=== PATIENT | female | born 1980 | race Caucasian/White ===

== ENCOUNTER 2018-04-30 09:58 | Outpatient (CLI) | payer OTHER, SELFPAY ==
[2018-04-30 10:36] LABS: HCT 42.4 % (36.0-46.0); HGB 13.8 g/dL (12.0-15.5); Mean Corp. HGB Concentration 32.5 g/dL (32.0-36.0); Mean Corpuscular Hemoglobin 31.9 pg (27.0-33.0); Mean Corpuscular Volume 98.1 fL (80-95); Mean Platelet Volume 10.3 fL (8.0-11.0); Platelet Count 245 x1000/uL (130-400); RBC 4.32 m/cumm (4.00-5.20); RBC Distribution Width 12.3 % (11.7-14.6); White Blood Cell Count 5.69 k/cumm (4.4-10.8)
[2018-04-30 11:22] LABS: ALT 24 U/L (12-78); AST 15 U/L (15-37); Albumin 3.6 g/dL (3.4-5.0); Alkaline Phosphatase 61 U/L (46-116); Anion Gap 6.3 mmol/L (3-11); BUN 10 mg/dL (7-18); Bilirubin, Total 0.6 mg/dL (0.2-1.0); CO2 26.7 mmol/L (21.0-32.0); CREATININE 0.89 mg/dL (0.55-1.02); Calcium 8.7 mg/dL (8.5-10.1); Chloride 105 mmol/L (98-107); Glucose 84 mg/dL (70-100); Potassium 4.9 mmol/L (3.5-5.1); Sodium 138 mmol/L (136-145); TSH (W/Ref FT4) 0.36 uIU/mL (0.358-3.74); Total Protein 6.6 g/dL (6.4-8.2)
[2018-04-30 11:41] LABS: Vitamin D 25 Total 30.9 ng/ml (30-100)
[2018-04-30 12:08] LABS: ESR 18 MM/HR (0-20)
[2018-05-01 09:32] LABS: Rheumatoid Factor <8 IU/mL (<12.5)
[2018-05-02 14:05] LABS: ANA Interpretation Negative (NEGAT)
== END 2018-04-30 10:18 ==
PROVIDERS: PCP Nurse Practitioner; Visit Provider Nurse Practitioner
DX: E55.9 Vitamin D deficiency, unspecified (principal); M25.50 Pain in unspecified joint
CPT/HCPCS: 36415; 80053; 82306; 85027; 85652; 84443; 86038; 86431

== ENCOUNTER 2018-09-03 16:41 | Outpatient (REF) | payer MEDICAID, SELFPAY ==
--- NOTE | 2018-09-03 15:15 | PAPFT_PTH ---
PATIENT: Jeana Beckwith LOC: [facility] U#:[id number] AGE/SX: 38/F ROOM: RE09/03/[address]: Skylar Rey APRN : 1980 BED: DIS: 09/03/2018 SPEC #: [id number] RECD: 09/03/18 18:10 STATUS: CHANTELLE REDon #: [id number] MAMI: 09/03/18 15:[address]: Skylar Rey DEPT: [facility] Cytology RECD BY: Kiara Ortiz Tissues: 1 - CX/ENDOCX FOR PAP SMEARS Procedures: PAP THIN PREP/UVM Screening HPV DNA PROBE Comments: [id number]
== END 2018-09-03 17:01 ==
LOC: LBN 16:41
PROVIDERS: PCP Nurse Practitioner; Visit Provider Nurse Practitioner
DX: Z12.4 Encounter for screening for malignant neoplasm of cervix (principal); Z11.51 Encounter for screening for human papillomavirus (HPV)
CPT/HCPCS: 88142; 87624

== ENCOUNTER 2020-07-08 00:31 | Outpatient (CLI) | payer BC, SELFPAY ==
--- NOTE | 2020-07-08 07:15 | DI.MAMMO_ITS ---
EXAM: MG MAMMO SCREENING CLINICAL HISTORY: screening,Z12.39,FAMILY H/O BREAST CA,Z80.3. TECHNIQUE: Bilateral full field digital CC and MLO mammographic images were obtained with 3D tomosyn thesis and utilizing computer aided detection (CAD). COMPARISON: None available. FINDINGS: The fibroglandular tissue is moderately dense, this decreasing sensitivity mammogram for finding hidd en underlying lesions. No obvious radiographic findings in the right breast. In the left breast there is a subtle suggestio n of a nodular density evident on the CC view located 6 centimetres in from the nipple and measuring 6 x 5 millimeters. Spot compression view recommended. There are no malignant-appearing microcalcifi cation groups in either breast. There is no significant architectural distortion or skin thickening- traction. IMPRESSION: Moderately dense fibroglandular tissue. Suggestion of left breast nodule. Spot compression view and possible ultrasound recommended. BI-RADS Category 0 - Assessment Incomplete: Need additional imaging evaluation Breast Density - Category C - Heterogeneously dense Breast density Category C or D implies that the patient has dense breast tissue. Dense breast tissue can make it harder to find cancer on a mammogram. Dense breast tissue is also associated with an incr eased risk of breast cancer. This information about the result of the mammogram report was provided to the patient to raise their awareness. Use this report when you speak with the patient about their risks for breast cancer, which includes their family history. At that time, you may recommend additional screening tests (Ultrasoun d or MRI) as these tests may add significant information. A negative radiographic report should not delay biopsy if a dominant or clinically suspicious mass is present. Up to ten percent of cancers are not identified on mammography. A negative report may reinforce clinical impression. Adenosis and dense breasts may obscure an underlying neoplasm. False positive reports average 6 to 10%. Patient will receive a letter notifying them of these results.
--- NOTE | 2020-07-08 11:58 | DI.RAD_ITS ---
EXAM: XR SHOULDER RT COMPLETE 2+V CLINICAL HISTORY: Shoulder pain, right arm numbness at times,M25.511. TECHNIQUE: 2D digital imaging was performed. COMPARISON: No exams were available for comparison FINDINGS: BONES: No acute fracture is present. No bony destructive lesion is seen. JOINTS: No dislocation present. The acromioclavicular and glenohumeral joints are unremarkable. SOFT TISSUE: There is a large calcification adjacent to the greater tuberosity consistent with calcif ic tendinitis. IMPRESSION: Calcific tendinitis of the right shoulder. DATA REPOSITORY: RADIATION DOSE DELIVERED:
--- NOTE | 2020-07-08 11:59 | DI.RAD_ITS ---
EXAM: XR HIP LT COMPLETE AP PELVIS CLINICAL HISTORY: L hip pain, sometimes left leg tingling,M25.552. TECHNIQUE: 2D digital imaging was performed. COMPARISON: No exams were available for comparison FINDINGS: BONES: No acute fracture is present. No bony destructive lesion is seen. Small dystrophic calcificati ons are seen adjacent to the acetabuli bilaterally. JOINTS: The hip joints are well maintained bilaterally. The sacroiliac joints and symphysis pubis ar e unremarkable. Moderate degenerative changes are seen at the L4-5 and L5-S1 disc spaces. SOFT TISSUE: Normal. IMPRESSION: 1. Unremarkable radiographs of the left hip. 2. Moderate degenerative changes seen at L4-5 and L5-S1. DATA REPOSITORY: RADIATION DOSE DELIVERED:
== END 2020-07-08 00:51 ==
PROVIDERS: PCP Nurse Practitioner; Visit Provider Nurse Practitioner
DX: M25.552 Pain in left hip (principal); M47.817 Spondylosis without myelopathy or radiculopathy, lumbosacral region; M47.816 Spondylosis without myelopathy or radiculopathy, lumbar region; M75.31 Calcific tendinitis of right shoulder; Z12.31 Encounter for screening mammogram for malignant neoplasm of breast; Z80.3 Family history of malignant neoplasm of breast; R92.8 Other abnormal and inconclusive findings on diagnostic imaging of breast
CPT/HCPCS: 77063; 77067; 73030; 73502

== ENCOUNTER 2020-07-28 01:01 | Outpatient (CLI) | payer BC, SELFPAY ==
--- NOTE | 2020-07-28 | DI.US_ITS ---
EXAM: MG MAMMO SCREEN CALL BACK UNI CLINICAL HISTORY: F/U MAMMO, NODULAR ASYMMETRY CENTRAL LT BREAST. TECHNIQUE: Craniocaudal and mediolateral oblique Full Field Digital Mammography views of the breast with Computer Aided Diagnosis followed by Tomosynthesis and breast ultrasound. COMPARISON: Priors available for comparison. FINDINGS: Mammography/Tomosynthesis: Masses/Architectural Distortion: None seen. Microcalcifictions: No suspicious pleomorphic-type are seen. Skin Thickening/Nipple Retraction: None. Left breast US: Echotexture: Normal appearance of the glandular tissue. Shadowing: No suspicious foci. Cyst: None. Solid lesions: There is a well-circumscribed hypoechoic nodule at the 6 o'clock position of the left breast 1 cm from the nipple measuring 0.5 x 0.4 x 0.3 cm. No internal blood flow, posterior acoustic shadowing or enhancement is noted. No cystic or solid masses are seen sonographically in the area t o correspond to the mammographic finding. Ductal dilation: None. IMPRESSION: 1. No evidence of malignancy is noted. 2. A six-month follow-up left mammogram and left breast ultrasound are requested for re-evaluation. 3. The findings were discussed with the patient on the date of the examination. BI-RADS Category 2 - Benign Findings Breast Density - Category C - Heterogeneously dense The mammogram demonstrates the patient's breast tissue is dense. Dense breast tissue is very common a nd is not abnormal but dense breast tissue can make it harder to find cancer on a mammogram. Also, de nse breast tissue may increase their breast cancer risk. This information about the result of the [facility] mogram report was provided to the patient to raise their awareness. Use this report when you speak wi th the patient about their risks for breast cancer, which includes their family history. At that time , you may recommend for more screening tests (Ultrasound or MRI) as they might be useful based on the ir risk. A negative radiographic report should not delay biopsy if a dominant or clinically suspicious mass is present. Up to ten percent of cancers are not identified on mammography. A negative report may reinforce clinical impression. Adenosis and dense breasts may obscure an underlying neoplasm. False positive reports average 6 to 10%. Patient will receive a letter notifying them of these results.
== END 2020-07-28 01:21 ==
PROVIDERS: PCP Nurse Practitioner; Visit Provider Nurse Practitioner
DX: Z12.31 Encounter for screening mammogram for malignant neoplasm of breast (principal); R92.8 Other abnormal and inconclusive findings on diagnostic imaging of breast; N60.82 Other benign mammary dysplasias of left breast
CPT/HCPCS: 76642; 77063; 77067

== ENCOUNTER 2020-09-02 02:03 | Outpatient (CLI) | payer BC, SELFPAY ==
--- NOTE | 2020-09-02 10:35 | DI.MRI_ITS ---
EXAM: MR UPPER JOINT RT WO CLINICAL HISTORY: CALCIFIC TENDINITIS,SHOULDER PAIN, M65.20. TECHNIQUE: Multiplanar multisequence MRI was performed. CONTRAST MATERIAL: IV Contrast: mL of Dotarem contrast administered. COMPARISON: Plain films dated 08 July 2020 shown large calcification in the distal supraspinatus tendon. FINDINGS: A 15 millimeter area of low signal is seen directly adjacent or within the distal supraspinatus tendo n, consistent with calcific tendinosis. There is a small amount of fluid in the subacromial subdelto id bursa. There is no evidence of supraspinatus tendon tear. The infraspinatus, subscapularis, cristhian s minor and biceps tendon appear intact. There is no cystic significant AC joint spurring. There is no muscle atrophy. There is a small amount of fluid in the subcoracoid bursa. No labral defect is seen. IMPRESSION: Calcific tendinosis of the supraspinatus. No evidence of tendon tear. DATA REPOSITORY:
== END 2020-09-02 02:04 ==
LOC: DI 02:04
PROVIDERS: PCP Nurse Practitioner; Visit Provider Student in an Organized Health Care Education/Training Program
DX: M75.31 Calcific tendinitis of right shoulder (principal)
CPT/HCPCS: 73221

== ENCOUNTER 2020-10-28 02:59 | Outpatient (CLI) | payer BC, SELFPAY ==
[2020-10-28 10:13] LABS: Source Nasal/Nares
[2020-10-28 15:23] LABS: COVID-19 PCR Negative (Negative)
== END 2020-10-28 03:00 | disposition home or self-care (01) ==
LOC: LBO 02:59
PROVIDERS: PCP Nurse Practitioner; Visit Provider Student in an Organized Health Care Education/Training Program
DX: Z20.822 Contact with and (suspected) exposure to COVID-19 (principal); Z01.818 Encounter for other preprocedural examination
CPT/HCPCS: 87635

== ENCOUNTER 2020-10-30 08:24 | Day surgery (SDC) | payer BC, SELFPAY ==
[2020-10-30] VITALS (10 sets, daily range): BP systolic 85–123; BP diastolic 34–85; PULSE 62–81; RESP 16–21; TEMP 36.3–36.5; O2SAT 95–100
[2020-10-30] MEDS: Lactated Ringers 1,000 ML 100 ML IV (09:06)
[2020-10-30] MEDS: ceFAZolin 2 GM/50 ML BAG IVPB (10:30)
[2020-10-30] MEDS: EPINEPHrine 30 MG/30 ML VIAL (12:18)
--- NOTE | 2020-10-30 13:04 | W.PM.DSUDISC ---
Discharge Plan Disposition Patient Disposition: HOME Condition: Stable Discharge Details Reason For Visit: Right shoulder surgery Attending Provider: Oral Larson Primary Care Provider: Skylar Rey Home Meds and New Rx's Prescriptions: New naproxen 250 mg tablet 250 - 500 mg PO BID PRN (Reason: Moderate pain or swelling) Qty: 60 RF: 0 oxycodone 5 mg tablet 5 - 10 mg PO Q4H PRN (Reason: moderate to severe pain) Qty: 16 RF: 0 Continued cholecalciferol (vitamin D3) 3,000 UNIT tablet 3,000 unit PO DAILY Qty: 90 RF: 3 Discontinued gabapentin 300 mg capsule 300 mg PO QHS Qty: 60 RF: 5 Discharge Instructions Additional Instructions: Surgery: Shoulder arthroscopy with debridement supraspinatus calcific deposit, subacromial decompression, and rotator cuff repair Activity: For 4 weeks you should keep your arm at your side in a neutral position at all times except for physical therapy. Do not try to lift or raise your arm using your own muscles. You should use the sling whenever you are out of the house. You may have to adjust the abduction pillow or remove it for comfort. At home it is best to remove the sling and rest the arm on a pillow at your side or support the operative side with your other hand. You may allow the arm to dangle at your side. A physical therapy prescription will be sent electronically to begin in 2-3 weeks. Prescriptions: Naproxen 250 mg take 1-2 every 12 hours with a meal as needed for moderate pain Oxycodone 5 mg take 1-2 every 4-6 hours as needed for severe pain You may use [id number] Tylenol (acetaminophen) as needed for mild pain. These pain medications may be taken all at once or in different combinations as needed. Also, recommend Colace (docusate) as a stool softener as surgery and pain medicine cause constipation. Dressings: Remove shoulder bandage after 3 days. Leave the sticky Steri-Strips in place until they fall off or remove them after you shower. Cover the incisions with Band-Aids or leave them open to air. You may shower after 5 days. Follow-up: 10-[address] Larson You may take off the leg compression stockings this evening at home. You may also leave them on a few days longer if you have a history of leg swelling or edema. Let us know right away if you develop any redness, drainage, fevers, chest pain, or trouble breathing. Do not drink alcohol or drive for at least 24 hours after anesthesia. Please call the office during business hours with any questions or concerns. Referrals: Oral Larson MD [ [facility] STAFF PHYSICIAN] - Discharge Orders Discharge Orders: Discharge Order (Routine); Ordered 10/30/20 Ordered By: Oral Larson DS: Diagnosis Discharge Diagnosis (1) Calcific tendinitis: Status: Acute
--- NOTE | 2020-10-30 15:50 | ROE_ITS ---
Date of service: 10/30/20 Time of Service: 15:29 Operative Note Operative Note DATE OF PROCEDURE: 10/30/20 PRE-OP DIAGNOSIS: Right shoulder: 1. Calcific tendinitis 2. Bursitis POST-OP DIAGNOSIS: other Right shoulder: 1. Calcific tendinitis 2. Bursitis 3. Rotator cuff tear PROCEDURE: Right shoulder: 1. Rotator cuff repair, CPT# 17841. This involved repair of the supraspinatus calcium deposit defect using sutures and a suture anchor anchor to reapproximate the edges of the rotator cuff and secured back to the greater tuberosity. 2. Extensive debridement, CPT# 93454. This involved using arthroscopic hand instruments, power instruments, and radiofrequency instruments to expose, completely debride, and thoroughly resect large calcific deposit in the supraspi natus tendon and subacromial space. Minor anterior and superior labral fraying was also lightly debrided within the glenohumeral joint. 3. Subacromial decompression, CPT# 23700. This involved using arthroscopic power instruments and a radiofrequency wand to complete a bursectomy of significant pathologic bursa especially laterally, expose the undersurface of the acromium, and partially release the CA ligament.. The lpn medical assistant was medically required in order to help assist in techniques above, which require positioning the arm, holding the arthroscope, and manipulating multiple instruments and sutures at the same time. This cannot be done without the help of an experienced lpn medical assistant. SURGEON: Oral Larson PRECISION PRINTING WORKER: Marce Kitchen ANESTHESIA TYPE: General LMA/ETT and Primary Nerve Block Refer to Anesthesia Record ESTIMATED BLOOD LOSS: 10 PATHOLOGY: none sent COMPLICATIONS: None Patient was transported to: PACU Patient's condition: stable Implants: Arthrex: 4.75mm SwiveLocks x 1 Indications: The patient was diagnosed with the above conditions and appropriately indicated for surgical intervention. Please see complete medical record for details. Findings: Exam under anesthesia: Full, symmetrical range of motion. No instability. Glenohumeral joint: Minimal synovitis. Intact articular cartilage. Mild anterior and superior labral fraying. Likely normal superior labral recess but not pathologic SLAP tear. Mild long head of biceps tendon injection. Intact subscapularis. Intact articular sided supraspinatus infraspinatus. Subacromial space: Significant bursitis especially laterally with some hemorrhagic bursitis. Minimal acromial bone spurring. Large approximately 2 x 2 centimeter calcific deposit in the central and lateral supraspinatus involving largely the bursal most fibers and somewhat deeper more medially and posteriorly in limited aspects up to 50% thickness and limited spots. Remainder of supraspinatus intact. Intact infraspinatus. Procedure Description: In the operating room, general anesthesia was induced. Bilateral shoulders were examined. The patient was positioned in the beachchair position. All bony prominences were well-padded. Preoperative antibiotics were administered. The shoulder was prepped and draped in the usual sterile fashion. The correct patient, procedure, and side of the procedure were all verified prior to incision. Starting through the posterior portal a standard complete diagnostic arthroscopy was performed of the glenohumeral joint including inspection of the long head of the biceps, anterior and superior labrum, subscapularis tendon, supraspinatus and infraspinatus tendons, and axillary recess. The glenoid and humeral head cartilage as well as the posterior labrum were inspected from an anterior v iewing portal. Significant findings and interventions noted above. Starting through the posterior portal, the arthroscope was directed into the subacromial space. A lateral 50 yard line lateral portal was created and Michelle cannula inserted. A combination of power instruments and a radiofrequency ablator were used to debride bursitis anteriorly, posteriorly, and laterally as well as expose the underside of the acromion, which was smoothing did not require acromioplasty. The coracoacromial ligament was partially released. The bursectomy was completed viewing laterally and working from posteriorly and the rotator cuff was thoroughly inspected with findings noted above. Particular attention paid to the lateral supraspinatus about the location of the calcific deposition. Correct site for approaching the calcific deposition was confirmed using a spinal needle attempted to be most lateral and central to the lesion. A liberator/elevator was then used to separate the thin bursal most fibers of the rotator cuff in this site in line with their fibers and expose abundant calcific debris below. The Michelle inner clear cannula was then used to press against the exposed deposit site and manually squeeze out significant calcium debris. Mechanical shaver was brought in to remove calcium from about the site. Alternating between various hand instruments, radiofrequency ablator, and m echanical shaver this process was carefully continued until all calcific deposition was removed from the supraspinatus tendon site, frayed tendon edges were debrided to a healthy and stable margin. Minimal healthy tendon was violated and care was taken to work in line with fibers from as far laterally possible to medial. The margin of the subacromial space were carefully inspected and any free calcific debris removed as well. Once appropriate debridement had been completed, the rotator cuff defect was inspected. Tissue graspers confirmed limited aspect maybe 50% thickness medially anteriorly and posteriorly at this bruit site with less thick defect centrally medially and laterally. Reduction was confirmed to be best with closure of the anterior to posterior gap and bringing a medial cuff of tissue from medial to lateral. The Michelle cannula and arm were positioned to accommodate planned rotator cuff repair given the size of the defect and borderline thickness and spots. The appropriate position on the lateral greater tuberosity rotator cuff footprint was cleared enough for planned anchor placement. A self retrieving suture passer was used to place a fiber tape stitch in a horizontal inverted mattress fashion anteriorly and centrally. An additional fiber link stitch in cinch mode was passed at the posterior aspect. Appropriate reduction confirmed using the rigid inner of the Michelle cannula to the planned anchor site. The punch was then used to localize for the anchor, which was properly loaded with the sutures, care was used to apply appropriate tension but no undue tension given this bursal type repair, and the arm in abduction at the patient's side, and the suture anchor was deployed and secured into the rotator cuff footprint. The anchor demonstrated excellent pullout strength. Sutures were cut flush. The repair was inspected through range of motion and probed and demonstrated excellent fixation strength. There were no additional defects noted and no additional calcific debris found. The shoulder was drained of arthroscopic fluid. All portal sites were copiously irrigated. These incisions were closed using 3-0 Monocryl in a buried fashion, covered with Mastisol, Steri-Strips, Xeroform, dry gauze, and ABDs. The dressings were covered and secured with Medipore tape. The operative extremity was placed into a sling for immobilization. The patient awoke from anesthesia without complication and was transferred to the recovery room in a stable condition.
== END 2020-10-30 16:00 | disposition home or self-care (01) ==
PROVIDERS: PCP Nurse Practitioner; Visit Provider Student in an Organized Health Care Education/Training Program
PROC: (CPT 29827; principal; 2020-10-30 10:00)
DX: M65.221 Calcific tendinitis, right upper arm (principal); M75.101 Unspecified rotator cuff tear or rupture of right shoulder, not specified as traumatic; M75.51 Bursitis of right shoulder
CPT/HCPCS: 29827; 29823; 29826; 76942; J0690; J1100; J2250; J2405

== ENCOUNTER 2021-01-21 03:01 | Outpatient (CLI) | payer BC, SELFPAY ==
--- NOTE | 2021-01-21 08:30 | DI.RAD_ITS ---
Exam(s) RF JOINT INJECTION FLUORO GUID EXAM: RF JOINT INJECTION FLUORO GUID CLINICAL HISTORY: L HIP INJ UNDER FLUORO, LABRAL TEAR LT HIP, S73.192A TECHNIQUE: Fluoroscopy provided. Radiologist not present. CONTRAST MATERIAL: None COMPARISON: No exams were available for comparison FINDINGS: Fluoroscopy was provided for left hip therapeutic injection Submitted image(s) reveal needle placement at the lateral aspect of the femoral head. Small amount o f intra-articular contrast was injected. Please refer to the procedure report for complete details. Cumulative Dose: Juanr=10.2 mGy IMPRESSION: RADIATION DOSE DELIVERED:
[2021-01-21] MEDS: Bupivacaine 0.5% Pres-Free 10 ML VIAL IJ (14:23)
[2021-01-21] MEDS: methylPREDNISolone ACETATE 80 MG/ML VIAL IM (14:24)
[2021-01-21] MEDS: Omnipaque 300 MG/ML 10 ML BTL IJ (14:24)
--- NOTE | 2021-01-21 14:24 | W.PROCNOTE ---
Date of service: 01/21/21 Time of Service: 14:01 Procedure Note Date of procedure: 01/21/21 Procedure: Left Hip Injection with Fluoroscopic Guidance Surgeon/Proceduralist/Physician: Naresh Berman Procedure Diagnosis: Left Hip Impingement, ?Labral Tear Procedure Indications: Jeana has had persistent pain of the LEFT hip and groin. Noninvasive measures have been tried. To serve as both diagnostic and therapeutic, an injection under fluoroscopy was recommended. I had discussed the risks of the procedure and the patient elected to proceed. Procedure Description: Jeana was greeted in the flouroscopy room. The correct side was identified and the consent was reviewed with the patient and signed. The patient was then placed in the supine position on the fluoroscopy table. The LEFT hip was then prepped with Chloraprep. The anterolateral injection starting point was identiifed by bony landmarks and fluoroscopy. The skin and soft tissue in the tract of the injection was anesthetized with 1% Lidocaine. A spinal needle was then inserted deep into the hip joint at the level of the lateral femoral neck under fluoroscopic guidance. A small amount of Omnipaque solution was injected to confirm intraarticular placement. Once confirmed, the hip was injected with 6cc of 0.5% Bupivicaine and 80mg of Depo-Medrol. A bandaid was placed on the injection site. The patient tolerated the procedure well and noted improvement in pre-injection pain.
== END 2021-01-21 03:21 ==
PROVIDERS: PCP Nurse Practitioner; Visit Provider Student in an Organized Health Care Education/Training Program
DX: M25.852 Other specified joint disorders, left hip (principal); M25.552 Pain in left hip; R10.32 Left lower quadrant pain
CPT/HCPCS: 20610; 77002; J1040

== ENCOUNTER 2021-03-16 03:15 | Outpatient (CLI) | payer BC, SELFPAY ==
--- NOTE | 2021-03-16 14:26 | DI.MAMMO_ITS ---
Exam(s) MAMMO DIAGNOSTIC UNI EXAM: MAMMO DIAGNOSTIC UNI CLINICAL HISTORY: ABNL LT MAMMO R92.8, 6 MO F/U. COMPARISON: 2015 through July 2020 TECHNIQUE: Craniocaudal and mediolateral oblique Full Field Digital Mammography views of the left b reast with Computer Aided Diagnosis FINDINGS: Mammography/Tomosynthesis: Masses/Architectural Distortion: None seen. The previously questioned nodular asymmetry in the metal baler ior left breast is not apparent on the current exam. Microcalcifications: No suspicious pleomorphic-type are seen. Skin Thickening/Nipple Retraction: None. IMPRESSION: 1. No evidence of malignancy is noted. 2. Unless there is more urgent need, follow-up screening mammography is recommended, as per [place] guidelines. BI-RADS Category 1 - Negative Breast Density - Category C - Heterogeneously dense Breast density category C or D implies that the patient has dense breast tissue. Dense breast tissue is very common and is not abnormal but dense breast tissue can make it harder to find cancer on a ma mmogram. Also, dense breast tissue may increase their breast cancer risk. This information about the result of the mammogram report was provided to the patient to raise their awareness. Use this report when you speak with the patient about their risks for breast cancer, which includes their family hist ory. At that time, you may recommend for more screening tests (Ultrasound or MRI) as they might be us eful based on their risk. A negative radiographic report should not delay biopsy if a dominant or clinically suspicious mass is present. Up to ten percent of cancers are not identified on mammography. A negative report may reinforce clinical impression. Adenosis and dense breasts may obscure an underlying neoplasm. False positive reports average 6 to 10%. Patient will receive a letter notifying them of these results.
== END 2021-03-16 03:35 ==
PROVIDERS: PCP Nurse Practitioner; Visit Provider Nurse Practitioner
DX: R92.8 Other abnormal and inconclusive findings on diagnostic imaging of breast (principal)
CPT/HCPCS: 77061; 77065; G0279

== ENCOUNTER 2021-11-11 02:42 | Outpatient (CLI) | payer BC, SELFPAY | END 2021-11-11 02:43 | disposition home or self-care (01) | LOC: LBO 02:42 | PROVIDERS: PCP Nurse Practitioner; Visit Provider Nurse Practitioner ==

== ENCOUNTER 2021-12-03 03:00 | Outpatient (CLI) | payer BC, SELFPAY ==
[2021-12-03 12:09] LABS: HGB 14.3 g/dL (11.2-15.7); MCH 31.6 pg (27.0-33.0); MCHC 33.3 % (32.0-36.0); MCV 95 fL (80-95); MPV 9.8 fL (8.0-11.0); Platelet Count 287 10^3/uL (130-400); RBC 4.53 10^6/uL (3.93-5.22); RDW 12.2 % (11.7-14.6); RDW-SD 42.5 fL; WBC 6.66 10^3/uL (4.4-10.8)
[2021-12-03 13:16] LABS: Total Iron Binding Capacity 378 ug/dL (250-450)
[2021-12-03 13:47] LABS: ALT 31 U/L (14-59); AST 16 U/L (15-37); Albumin 4.2 g/dL (3.4-5.0); Alkaline Phosphatase 62 U/L (46-116); Anion Gap 10.5 mmol/L (3-11); BUN 14 mg/dL (7-18); Bilirubin, Total 0.6 mg/dL (0.2-1.0); CO2 24.5 mmol/L (21.0-32.0); CREATININE 0.9 mg/dL (0.55-1.02); Calculated LDL 114 mg/dL (<100); Chloride 105 mmol/L (98-107); Cholesterol 194 mg/dL (<200); Ferritin 46 ng/mL (8-252); Glucose 88 mg/dL (74-106); HDL Cholesterol 71 mg/dL (40-60); Potassium 4.7 mmol/L (3.5-5.1); Sodium 140 mmol/L (136-145); TSH (W/Ref FT4) 0.01 uIU/mL (0.36-3.74); Total Protein 7.3 g/dL (6.4-8.2); Triglyceride 49 mg/dL (<150); Vitamin B12 413 pg/mL (193-986)
[2021-12-03 14:07] LABS: FREE T4 1.38 ng/dL (0.76-1.46)
[2021-12-03 21:30] LABS: Rheumatoid Factor <8.6 IU/mL (<12.0)
[2021-12-06 06:09] LABS: Vitamin D 25 Total 21.2 ng/mL (30-100)
[2021-12-06 15:55] LABS: ANA Interpretation Negative (Negative)
== END 2021-12-03 03:01 | disposition home or self-care (01) ==
LOC: LBO 03:00
PROVIDERS: PCP Nurse Practitioner; Visit Provider Nurse Practitioner
DX: Z00.00 Encounter for general adult medical examination without abnormal findings (principal); R53.83 Other fatigue; E55.9 Vitamin D deficiency, unspecified; G25.81 Restless legs syndrome; M25.59 Pain in other specified joint; R20.9 Unspecified disturbances of skin sensation; Z13.220 Encounter for screening for lipoid disorders; Z82.61 Family history of arthritis
CPT/HCPCS: 36415; 80053; 80061; 82306; 85027; 82607; 82728; 83550; 84439; 84443; 86038; 86431

== ENCOUNTER 2022-03-17 00:38 | Outpatient (CLI) | payer BC, SELFPAY ==
--- NOTE | 2022-03-17 07:00 | DI.MAMMO_ITS ---
Exam(s) MAMMO SCREENING EXAM: MAMMO SCREENING CLINICAL HISTORY: screening,z12.39 TECHNIQUE: Mammograms were interpreted according to the usual protocol including computer analysis w [employer] CAD system, tomosynthesis and C-view imaging. COMPARISON: FINDINGS: The breasts are heterogeneously dense with fairly symmetrical distribution of fibroglandular tissue. No dominant mass or clumped microcalcification is identified in either breast. The current examinat ion is compared with previous examinations including February 2021 and there has been no gross interval change in appearance in comparison with the prior studies. IMPRESSION: No specific evidence of malignancy at this time. Routine screening examinations are suggested at yea rly intervals due to the family history of breast carcinoma. BI-RADS Category 1 - Negative Breast Density - Category C - Heterogeneously dense
== END 2022-03-17 00:58 ==
PROVIDERS: PCP Nurse Practitioner; Visit Provider Nurse Practitioner
DX: Z12.31 Encounter for screening mammogram for malignant neoplasm of breast (principal); R92.8 Other abnormal and inconclusive findings on diagnostic imaging of breast
CPT/HCPCS: 77063; 77067

== ENCOUNTER 2022-03-24 05:17 | Outpatient (CLI) | payer BC, SELFPAY ==
[2022-03-24 10:38] LABS: ESR 23 mm/hr (0-20)
[2022-03-24 12:36] LABS: Magnesium 1.9 mg/dL (1.8-2.4); TSH (W/Ref FT4) 0.01 uIU/mL (0.36-3.74)
[2022-03-24 12:50] LABS: Vitamin D 25 Total 32.5 ng/mL (30-100)
[2022-03-24 12:58] LABS: FREE T4 1.69 ng/dL (0.76-1.46)
[2022-03-24 21:48] LABS: CRP, High Sensitivity 1.19 mg/L (See Note)
== END 2022-03-24 05:18 | disposition home or self-care (01) ==
LOC: LBO 05:18
PROVIDERS: PCP Nurse Practitioner; Referring Provider Nurse Practitioner; Visit Provider Nurse Practitioner
DX: R53.83 Other fatigue (principal); E55.9 Vitamin D deficiency, unspecified; R79.89 Other specified abnormal findings of blood chemistry; M79.18 Myalgia, other site; N92.0 Excessive and frequent menstruation with regular cycle; F41.8 Other specified anxiety disorders; E66.3 Overweight
CPT/HCPCS: 36415; 82306; 85652; 86141; 83735; 84439; 84443

== ENCOUNTER 2022-06-21 03:59 | Outpatient (CLI) | payer BC, SELFPAY ==
[2022-06-21 16:15] LABS: TSH (W/Ref FT4) < 0.01 uIU/mL (0.36-3.74)
[2022-06-21 16:44] LABS: FREE T4 1.36 ng/dL (0.76-1.46)
== END 2022-06-21 04:00 | disposition home or self-care (01) ==
LOC: LBO 03:59
PROVIDERS: PCP Nurse Practitioner; Visit Provider Student in an Organized Health Care Education/Training Program
DX: R94.6 Abnormal results of thyroid function studies (principal); R53.83 Other fatigue; R79.89 Other specified abnormal findings of blood chemistry
CPT/HCPCS: 36415; 84439; 84443

== ENCOUNTER 2022-09-02 02:17 | Outpatient (CLI) | payer BC, SELFPAY ==
[2022-09-02 16:17] LABS: WBC 5.84 10^3/uL (4.4-10.8)
[2022-09-02 16:53] LABS: ALT 56 U/L (14-59); AST 29 U/L (15-37); Albumin 3.8 g/dL (3.4-5.0); Alkaline Phosphatase 53 U/L (46-116); Bilirubin, Direct 0.1 mg/dL (0.0-0.2); Bilirubin, Total 0.4 mg/dL (0.2-1.0); FREE T4 1.37 ng/dL (0.76-1.46); TSH < 0.01 uIU/mL (0.36-3.74); Total Protein 6.8 g/dL (6.4-8.2)
[2022-09-08 14:32] LABS: Thyroid Stimulating Immunoglob 2.9 TSI index (<=1.3)
== END 2022-09-02 02:18 | disposition home or self-care (01) ==
PROVIDERS: PCP Nurse Practitioner; Visit Provider Internal Medicine Endocrinology, Diabetes & Metabolism
DX: E05.90 Thyrotoxicosis, unspecified without thyrotoxic crisis or storm (principal)
CPT/HCPCS: 36415; 80076; 85048; 84439; 84443; 84445

== ENCOUNTER 2023-06-28 13:27 | Outpatient (CLI) | payer BC, SELFPAY ==
--- NOTE | 2023-06-28 11:45 | DI.RAD_ITS ---
Exam(s) XR HIP LT COMPLETE AP PELVIS EXAM: XR HIP LT COMPLETE AP PELVIS CLINICAL HISTORY: LEFT HIP PAIN. TECHNIQUE: 2D digital imaging was performed. Two views. COMPARISON: MR MRI ARTH HIP from 11/11/2020 FINDINGS: BONES: No acute fracture is present. No bony destructive lesion is seen. JOINTS: No dislocation present. Hip joint spaces are maintained. No significant periarticular spur ring. AC joints and pubic symphysis are unremarkable. SOFT TISSUE: Normal. IMPRESSION: Unremarkable radiographs of the left hip. DATA REPOSITORY: RADIATION DOSE DELIVERED:
== END 2023-06-28 13:28 | disposition home or self-care (01) ==
LOC: DIORS 13:28
PROVIDERS: PCP Nurse Practitioner; Visit Provider Student in an Organized Health Care Education/Training Program
DX: M25.552 Pain in left hip (principal)
CPT/HCPCS: 73502

== ENCOUNTER → 2023-07-07 00:21 | Outpatient (CLI) | payer BC, SELFPAY ==
--- NOTE | 2023-07-07 07:15 | DI.MAMMO_ITS ---
Exam(s) MAMMO SCREENING EXAM: MAMMO SCREENING CLINICAL HISTORY: screening,Z12.39 TECHNIQUE: Mammograms were interpreted according to the usual protocol including computer analysis w [employer] CAD system, tomosynthesis and C-view imaging. COMPARISON: 2015 through 2021 FINDINGS: The breasts are composed of heterogeneously dense fibroglandular densities, Breast Density category C . No suspicious masses or suspicious microcalcifications are seen. No skin thickening or abnormal axillary lymph nodes are seen. There has been no significant change from prior exams. IMPRESSION: BI-RADS Category 1, Negative mammogram. Yearly screening mammography is recommended. Breast Density Category C, heterogeneously Dense. The mammogram demonstrates the patient's breast tissue is dense. Dense breast tissue is very common a nd is not abnormal but dense breast tissue can make it harder to find cancer on a mammogram. Also, de nse breast tissue may increase breast cancer risk. This information about the result of the mammogram report was provided to the patient to raise their awareness. Use this report when you speak with the patient about their risks for breast cancer, which includes their family history. At that time, you may recommend additional screening tests (Ultrasound or MRI) as they might be useful based on their r isk. A negative radiographic report should not delay biopsy if a dominant or clinically suspicious mass is present. Up to ten percent of cancers are not identified on mammography. A negative report may reinforce clinical impression. Adenosis and dense breasts may obscure an underlying neoplasm. False positive reports average 6 to 10%.
== END ==
PROVIDERS: PCP Nurse Practitioner; Visit Provider Nurse Practitioner
DX: Z12.31 Encounter for screening mammogram for malignant neoplasm of breast (principal)
CPT/HCPCS: 77063; 77067

== ENCOUNTER 2023-09-08 06:15 | Day surgery (SDC) | payer BC, MEDICAID, SELFPAY ==
[2023-09-08] VITALS (10 sets, daily range): BP systolic 107–126; BP diastolic 63–95; PULSE 67–81; RESP 14–26; TEMP 36.4–36.8; O2SAT 98–100; BMI 28.1
[2023-09-08] MEDS: Lactated Ringers 1,000 ML 30 ML IV (06:47)
--- NOTE | 2023-09-08 06:51 | W.ANESPRE ---
General Info Date of Service Date Performed: 09/08/23 Height: 5 ft 9 in Weight: 86.5 kg Body Mass Index (BMI): 28.1 Surgical Procedure: Operation Date: 09/08/23 07:50 Proposed Procedure Side Surgeon p Hip Arthroscopy w/Labral Debridement VS Repair and Possible Femoroplasty Left Oral Larson MD s Endoscopic Iliotibial Band Release w/Trochanteric Bursectomy Left Oral Larson MD Meds Allergies and Home Medications Allergies Allergy/AdvReac Type Severity Reaction Status Date / Time bee venom protein (honey bee) Allergy Mild Swelling/Ed Verified 09/08/23 06:23 gerardo codeine AdvReac Mild Nausea Verified 09/08/23 06:23 Home Medication Medication Instructions Recorded cholecalciferol (vitamin D3) 75 3,000 unit PO DAILY ##90 10/25/17 mcg (3,000 unit) tablet gabapentin 300 mg capsule See Rx Instructions .Route 03/22/23 .COMPLEX #90 caps methimazole 10 mg tablet 10 mg PO DAILY 06/22/23 naproxen 250 mg tablet 250 - 500 mg (1 - 2 x 250 mg) PO 09/08/23 BID PRN Moderate pain #40 tabs oxycodone 5 mg tablet 5 - 10 mg (1 - 2 x 5 mg) PO Q4H 09/08/23 PRN Moderate to severe pain #18 tabs Current Visit Medications: Current Medications Generic Name Dose Route Start Last Admin Trade Name Freq PRN Reason Stop Dose Admin Ringer's Solution 1,000 mls @ 30 mls/hr 09/08/23 06:00 09/08/23 06:47 IV 09/08/23 23:59 30 mls/hr INFUSION SINCERE Administration Cefazolin Sodium/Dextrose 2 gm in 50 mls @ 100 mls/hr 09/08/23 06:00 Ancef Duplex IVPB 09/08/23 23:59 PREOP SINCERE IV Miscellaneous Supplies 1 each 09/08/23 06:00 Iv Access IV 09/08/23 23:59 DIRECTED SINCERE Sodium Chloride 0 ml 09/08/23 06:00 Normal Saline Flush 10 Ml Syr IV 09/08/23 23:59 PRN PRN Sodium Chloride 0 ml 09/08/23 06:00 Normal Saline 10 Ml Vial IJ 09/08/23 23:59 DIRECTED PRN Sterile Water 0 ml 09/08/23 06:00 Water,Injection,Sterile 10 Ml Vial IJ 09/08/23 23:59 DIRECTED PRN PFSH Active Problems Active Problems: Problem Status Onset Code Graves disease E05.00 Low TSH level ~05/2022 R79.89 Perimenopausal menorrhagia N92.4 Anxiety and depression F41.9, F32.A 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 Had painful periods Gastric ulcer Patellofemoral syndrome Medical History Comments:: Left hip pain Surgical History Surgical History Hx of rotator cuff surgery Ligation of fallopian tube (07/03/14) Repair of inguinal hernia Bilateral Cholecystectomy (06/04/10) Tobacco Smoking/Tobacco Use Status: Former Tobacco Use Passive smoking exposure: No Second hand exposure: No Alcohol Alcohol Intake: current Alcohol intake frequency: a few times a month Alcohol type: beer Details: 3 beers each sitting Substance Use Substance use: Daily Substance use type: marijuana Prental History History 1 Para Hx # Term Pregnancies Multiple births Hx # Pregnancies Ectopic pregnancies AB induced 1 Hx Number of Living Children AB spontaneous Vital Signs and Lab Results Vital Signs Most Recent Vital Signs in EMR: Most Recent Vital Signs Temp Pulse Resp BP Pulse Ox 36.4 C L 80 18 126/68 99 09/08/23 06:24 09/08/23 06:24 09/08/23 06:24 09/08/23 06:24 09/08/23 06:24 Point of Care Results Point of Care Results: POC- Test(urine) Negative 09/08/23 06:48 Lab Results Blood Type / Crossmatch: No Data to Display Complete Blood Count: No Data to Display Complete Metabolic Panel: No Data to Display Liver Function Panel: No Data to Display Coagulation Panel: No Data to Display Cardiac Panel: No Data to Display Arterial Blood Gas: No Data to Display Venous Blood Gas: No Data to Display Pancreas Panel: No Data to Display Thyroid Panel: No Data to Display Infectious Disease: No Data to Display Blood Cultures: No Data to Display Toxicology Panel: No Data to Display Panel: No Data to Display Anesthesia Assessment and Plan Anesthesia History Personal History: PONV Family History: No Family History of Anesthesia Complications Exercise Tolerance Exercise Tolerance: Metabolic Equivalents>4 Pertinent Negatives Pertinent Negatives: No Symptoms of GERD, No Major Cardiovascular Symptoms or Complaints, No Major Pulmonary Symptoms or Complaints and No History of CVA/TIA Cardiac & Pulmonary Exam Cardiac Exam: Normal S1/S2 Heart Sounds Pulmonary Exam: Clear Bilateral Breath Sounds Implantable Cardiac Device Does patient have a Pacemaker or an ICD?: No Airway Exam Known Difficult Airway: No Mallampati Class: 2 Mouth Opening: Normal (> 3cm) Thyromental Distance: Greater than 3 cm Neck Range of Motion: Full ROM Neck Circumference: Normal Teeth Condition: Normal Dentition ASA Classification ASA Score: ASA 2 Emergency Case?: No NPO Status NPO Status: NPO Clears >2 hours, Solids >8 hours Status Status: Negative HCG Anesthesia Plan Resuscitation Status: Full Code Anesthesia Technique: General Anesthesia Airway Planned: Endotracheal Tube Pain Management: Surgeon and patient request nerve block Monitors Used: Standard Monitors and SedLine
--- NOTE | 2023-09-08 07:06 | W.PM.DSUDISC ---
Date of service: 09/08/23 Time of Service: 11:30 Discharge Plan Disposition Patient Disposition: Home Condition: Stable Discharge Details Attending Provider: Oral Larson Primary Care Provider: Skylar Rey Home Meds and New Rx's Prescriptions: New naproxen 250 mg tablet 250 - 500 mg PO BID PRN (Reason: Moderate pain) Qty: 40 0RF oxycodone 5 mg tablet 5 - 10 mg PO Q4H PRN (Reason: Moderate to severe pain) Qty: 18 0RF aspirin 81 mg tablet,delayed release (DR/EC) 81 mg PO DAILY 14 Days Qty: 14 0RF Continued gabapentin 300 mg capsule See Rx Instructions .ROUTE .COMPLEX Qty: 90 3RF Dose Instruction: take 1 capsule by mouth at bedtime Rx Instructions: take 1 capsule by mouth at bedtime cholecalciferol (vitamin D3) 3,000 UNIT tablet 3,000 unit PO DAILY Qty: 90 methimazole 10 mg tablet 10 mg PO DAILY Patient Comments: 06/19/23 medication increased from 5mg to 10mg [facility] Endocrinology Discharge Instructions Additional Instructions: Surgery: Left hip arthroscopy with labral repair and limited femoroplasty and Left hip endoscopy with iliotibial band release and trochanteric bursectomy Activity: Protected weight bearing (less than 50%) with crutches for 4 weeks. Avoid hip flexion past 90 degrees and any hip extension for 6 weeks. No cutting, pivoting, or sports for 3-4 months. A physical therapy prescription will be sent electronically to start in about 3 weeks. Prescriptions: Aspirin 81 mg take 1 daily to prevent a blood clot for 14 days Naproxen 250 mg take 1-2 every 12 hours with a meal as needed for moderate pain Oxycodone 5 mg take 1-2 every 4-6 hours as needed for severe pain You may use [id number] Tylenol (acetaminophen) as needed for mild pain. These pain medications may be taken all at once or in different combinations as needed. Also, recommend Colace (docusate) as a stool softener as surgery and pain medicine cause constipation. You may try nabq-[id number] diphenhydramine (Benadryl) 25-50 mg nightly as a sleep aid Dressings: Leave dressing in place for 3 days. Arthroscopic fluid might leak out of the portals and have a pink/red color. If the dressings become saturated, please remove and replace with clean dry gauze. After 3 days remove and leave open to air or cover incisions with Band-Aids. Leave the sticky Steri-Strips in place until they fall off or remove them after you shower. May shower after 5 days. Follow-up: 10-[address] Larson on 09/20/23 @1:30 pm. You may take off the leg compression stockings this evening at home. You may also leave them on a few days longer if you have a history of leg swelling or edema. Let us know right away if you develop any redness, drainage, fevers, chest pain, or trouble breathing. Do not drink alcohol or drive for at least 24 hours after anesthesia. Please call the office during business hours with any questions or concerns. Stand Alone Forms: Anesthesia Discharge Inst., Crutch Training Instructions, Brayan Olson (DSU) Discharge Orders Discharge Orders: Discharge Order (Routine); Ordered 09/08/23 Ordered By: Michael Pack DS: Diagnosis Discharge Diagnosis (1) Femoroacetabular impingement of left hip: Status: Acute (2) Labral tear of left hip joint: Status: Acute (3) Iliotibial band syndrome of left side: Status: Acute (4) Trochanteric bursitis of left hip: Status: Acute
--- NOTE | 2023-09-08 07:25 | W.PM.OP ---
Date of service: 09/08/23 Time of Service: 07:30 Operative Note Operative Note DATE OF PROCEDURE: 09/08/23 PRE-OP DIAGNOSIS: Left hip 1. Labral tear 2. Femoracetabular impingement 3. Iliotibial band syndrome 4. Trochanteric bursitis POST-OP DIAGNOSIS: same PROCEDURE: Left hip 1. Arthroscopic labral repair, CPT# 98648 2. Arthroscopic femoroplasty, CPT# 62453 3. Endoscopic iliotibial band release, CPT# 90231 4. Endoscopic trochanteric bursectomy, CPT# 14882 SURGEON: Oral Larson SEAWEED HARVESTER: Michael Pack ANESTHESIA TYPE: Local By Surgeon, General LMA/ETT and Primary Nerve Block (KEVIN) Refer to Anesthesia Record ESTIMATED BLOOD LOSS: 5 COMPLICATIONS: None Patient was transported to: PACU Patient's condition: stable Implants: Arthrex 1.8 mm knotless FiberTak x 1 Indications: Please see complete medical record for details. Findings: Anterior superior labral tear involving the chondral labral junction with positive wave sign, more limited labral fraying more anteriorly and superiorly. Moderate chondromalacia adjacent to the tear acetabulum and femoral head extending into a small femoral head neck cartilaginous prominence. Significantly thickened and taut iliotibial band. Profoundly inflamed and abundant peritrochanteric bursitis. No significant gluteal tendon tearing. Procedure Description: In the operating room, general and regional anesthesia were induced. The patient was positioned supine on the [place] table. All bony prominences were well-padded. Preoperative antibiotics were administered. The correct patient, procedure, and side of the procedure were all verified prior to incision. Initially, appropriate hip joint distraction was confirmed under sterile technique releasing suction seal with the hip in slight abduction by carefully placing an 18-gauge spinal needle into the hip joint and confirming an arthrogram with 10 cc of 0.25% bupivacaine containing epinephrine. The needle was removed, provisional traction released, and the hip prepped and draped in the usual sterile fashion. 20 cc of 0.25% bupivacaine containing epinephrine was infiltrated about the planned portal sites. Fluoroscopically, an anterolateral portal was established with hip under about 1 cm distraction. Traction start time as noted. Through the spinal needle, a nitinol wire was inserted and the needle removed. An 11 blade was used to create a portal sized incision about the Nitinol wire. A small 4 mm dilator was passed atraumatically over the nitinol wire through the capsule into the hip joint. The nitinol wire was removed. A 6 mm dilator was then passed over the smaller one into the hip joint and the initial dilator removed. The blunt end of a switching stick was then passed into the hip joint and the last dilator removed. The camera sleeve was then inserted over the switching stick, the switching stick removed, and the arthroscope attached to the camera sleeve. An initial dry arthroscopy of the hip joint confirmed appropriate viewing portal location about the equator laterally. Using a combination of fluoroscopic guidance and arthroscopic triangulation a modified mid anterior portal was established in a similar fashion with a spinal needle and sequential dilators. Care was taken to ensure the portal was in an appropriate position and outside the labrum. A banana blade was inserted anteriorly over half pipe. The capsule was released distal to the labrum working towards the anterolateral portal. The camera was then switched to the anterior portal, the anterolateral portal location was confirmed to be appropriate, and the banana blade brought in the anterolateral portal and the capsular opening enlarged working towards the anterior portal to accommodate the planned surgery. The camera was then switched back to the anterolateral portal. A complete intraportal capsulotomy was not necessary. A complete diagnostic arthroscopy of the hip was performed with relevant findings noted above. Attention was then turned to the anterior superior labral tear. The frayed labrum was debrided using the mechanical shaver and radiofrequency wand anteriorly and superiorly to the central zone of the tear. The remaining anterior superior labral tear had reasonably good labral quality and given the tear propagation of chondral labral junction a significant labral debridement and resection would have been needed to remove the pathologic tissue so instead a repair at this area was done. The proximal capsule was opened as well as soft tissue cleared from the adjacent acetabulum for the repair. The tear was probed and prepared on the peripheral side with elevators leaving the central chondral labral margin intact. The curved guide was used through the anterior portal directed away from the joint, appropriate placement confirmed using fluoroscopy, and fiber tack all suture knotless anchor inserted. The hurtado stitch was used to direct the looped shuttle suture from the anchor about the chondral labral margin into the joint and then retrieved and then used to shuttle the repair suture back through the anchor eyelet mechanism completing the inverted mattress type repair. The repair was tensioned appropriately and tested thoroughly with good fixation strength. No additional repair if needed more anteriorly or superiorly. The blunt end of a switching stick was left in the anterior portal, but appropriately withdrawn from hip joint. The camera was withdrawn similarly. Under direct visualization traction was gradually released at 73. The femoral head neck junction was inspected about the zone of labral injury. The hip was brought through internal rotation, external rotation, and deep flexion with rotation. The small prominence on imaging correlated to a small prominence about an area of chondromalacia that engaged with the labral tear and repair zone. The mechanical shaver was used to lightly debride the chondromalacia and remove this bony prominence. The limited portal capsulotomies had well apposed tissue ends and was not formally closed. The hip was drained of arthroscopic fluid. Additional portals were then localized proximal and distal to the greater trochanter for endoscopic surgery. The anterior lateral portal was used to bluntly probed the deep trochanter bone. Under fluoroscopic guidance, a switching stick and arthroscope were inserted localizing the iliotibial band over the greater trochanter. Blunt dissection and the mechanical shaver were used to resect fat and overlying tissue about the center of the iliotibial band and carefully expose the anterior and posterior margins. Visualization was challenging due to depth of tissue, abundant adipose, and significant hemorrhagic inflammation. Once the IT band was adequately exposed, the greater trochanter was once again localized with a spinal needle, central area for release marked. The banana blade was brought in and used to create a 2 cm longitudinal incision in line with the IT band fibers as well as extending it in a cruciate fashion with 2 cm incisions anteriorly and posteriorly. The radiofrequency ablator was used to achieve hemostasis. The mechanical shaver was then used to debride the IT band released edges exposing the trochanteric bursa. The tissue beneath was significantly inflamed and abundant. It was challenging to localize the trochanter even working just superficial to it fluoroscopically. The iliotibial band was significantly thickened and taut especially posteriorly and the release was extended carefully posteriorly The mechanical shaver was then used to excise the trochanteric bursa taking care to protect musculature about the margins of the greater trochanter as well as neurovascular structures especially posteriorly. There was good visualization the vastus lateralis as well as gluteus medius although there was still significant bursal tissue. [place] of tissue was completed as best reasonably possible along the posterior margin of the trochanter. Visualization remained quite challenging, the 30 degree arthroscope was switched, and additional resection done using blunt dissection with a set switching stick posterior fluoroscopic guidance and hip rotation for assistance.. The hip was brought through range of motion including internal and external rotation and there was no impinging iliotibial band tissue or remaining pathologic bursa. The viewing and working portals were switched and appropriate IT band release, trochanteric bursa excision, and hemostasis confirmed as best possible to be visualized. Suction was used to remove fluid from the endoscopic space. The portals were closed using 3-0 Monocryl in a buried fashion. Steri-Strips were applied over the incisions followed by Xeroform, 4 x 4 gauze, an ABD pad and secured with tape. The patient awoke from anesthesia without complication and was transferred to the recovery room in a stable condition.
[2023-09-08] MEDS: ceFAZolin 2 GM/50 ML BAG IVPB (07:49)
[2023-09-08] MEDS: Tranexamic Acid 1,000 MG/10 ML VIAL 1000 MG (08:10)
[2023-09-08] MEDS: Bupivacaine 0.25% Pres-Free 30 ML VIAL (08:45)
--- NOTE | 2023-09-08 09:03 | W.ANESNERVE ---
Nerve Block Single Injection Procedure Date and Time Date Performed: 09/08/23 Procedure Start: 07:54 Location Where Procedure Performed Procedure Location: Operating Room Procedure Stop: 08:02 Reason Performed: Postoperative Analgesia Requesting Provider: Oral Larson Timeout Performed Timeout Performed: Yes Monitoring Used ECG, Blood Pressure, SpO2, ETCO2 and See EMR for corresponding vital signs Sterility Sterility: Hand Hygiene, Surgical Cap, Surgical Mask, Sterile Gloves and Chlorhexidine Sedation Given During Procedure Sedation Given (Indicate Dose Given): No Sedation given Patient Mental Status Patient Mental Status: Performed under general anesthesia Nerve Block 1st Nerve Block: Laterality: Left Block Type: KEVIN Ultrasound Image Saved?: Yes Needle / Catheter Used: 100mm SonoPlex II Local Anesthetic Bolus (Indicate Dose Given): Injected in 3-5ml increments after negative blood aspiration and Bupivacaine 0.25% Dose:: 20mL Additives (Indicate Dose Given): None Ultrasound: Sterile probe cover and gel used Nerve Stimulator: Not Used Paresthesia: None Procedure Tolerated: No Complications Procedure Outcome: Successful Procedure Comment: Block assist: Rebel Rodriguez CRNA, timeout completed prior to procedure with full surgical team. Anatomy on review post procedure, possible intra-articular injection. Performed By: Noelle Araiza
--- NOTE | 2023-09-08 11:10 | DI.RAD_ITS ---
Exam(s) XR HIP LT IN OR EXAM: XR HIP LT IN OR CLINICAL HISTORY: left hip bursitis. TECHNIQUE: 2D and realtime digital imaging was performed. COMPARISON: No exams were available for comparison FINDINGS: Please see procedure note for details. Fluoro time: 5seconds RADIATION DOSE DELIVERED: ramon Martinez=13.9 mGy
[2023-09-08] MEDS: LORazepam 2 MG/ML VIAL 0.5 MG IVP (11:54)
--- NOTE | 2023-09-08 11:59 | W.ANESPOSTOP ---
Postoperative Evaluation Date, Time and Location Date Performed: 09/08/23 Time Performed: 11:59 Patient Location: PACU Vital Signs Most Recent Imported Vital Signs: Most Recent Vital Signs Temp Pulse Resp BP Pulse Ox 36.7 C 72 26 H 109/93 H 98 09/08/23 11:41 09/08/23 11:41 09/08/23 11:41 09/08/23 11:41 09/08/23 11:41 Pain Score Most Recent Pain Score: Most Recent Pain Score Pain Level 3 09/08/23 11:41 Assessment Mental Status: Awake (Alert & Oriented to Patient Baseline) Airway and Respiratory Function: Patent airway with normal (patient baseline) respiratory exam Cardiovascular Function: Hemodynamically Stable Hydration Status: Adequately Hydrated Nausea & Vomiting: No Nausea or Vomiting Pain: Pain is tolerable per patient Peripheral Nerve Block: Regional nerve block not resolved at time of post operative discharge
[2023-09-08] MEDS: fentaNYL 100 MCG/2 ML VIAL IVP (12:16)
[2023-09-08] MEDS: EPINEPHrine 10 MG/10 ML ML (12:43)
== END 2023-09-08 14:05 | disposition home or self-care (01) ==
PROVIDERS: PCP Nurse Practitioner; Visit Provider Student in an Organized Health Care Education/Training Program
PROC: (CPT 29860; principal; 2023-09-08 07:30)
PROC: (CPT 29863; 2023-09-08 07:30)
DX: M25.852 Other specified joint disorders, left hip (principal); M76.32 Iliotibial band syndrome, left leg; M70.62 Trochanteric bursitis, left hip
CPT/HCPCS: 29916; 29914; 27062; 27305; 76942; 81025; 73501; J0131; J0665; J0690; J1100; J1885; J2001; J2060; J2250; J2405; J2704; J3010; J3475

== ENCOUNTER → 2023-11-23 02:21 | Outpatient (CLI) | payer BC, SELFPAY ==
--- NOTE | 2023-11-23 08:45 | DI.MRI_ITS ---
Exam(s) MR UPPER JOINT LT WO EXAM: MR UPPER JOINT LT WO CLINICAL HISTORY: L SHOULDER PAIN, LT ROTATOR CUFF TEAR, M75.102. TECHNIQUE: Multiplanar multisequence MRI was performed. COMPARISON: Plain films 18 October 2023 FINDINGS: BONES: There is no fracture or contusion pattern. JOINTS:The acromioclavicular joint is normal. The glenohumeral joint is normal. TENDONS: Supraspinatus: Unremarkable. Infraspinatus: Unremarkable. Subscapularis: Unremarkable. Teres Minor: Unremarkable. Biceps and [place]: Unremarkable. MUSCLES: Unremarkable. GLENOID LABRUM: Unremarkable on this noncontrast examination. SOFT TISSUES: Unremarkable. OTHER: Subacromial and subdeltoid bursae contains minimal fluid. Minimal amount of fluid in subcora coid bursa. IMPRESSION: No evidence of rotator cuff tear. DATA REPOSITORY:
== END ==
PROVIDERS: PCP Nurse Practitioner; Visit Provider Student in an Organized Health Care Education/Training Program
DX: M25.512 Pain in left shoulder (principal)
CPT/HCPCS: 73221

== ENCOUNTER 2024-03-13 11:43 | Outpatient (CLI) | payer BC, SELFPAY ==
--- NOTE | 2024-03-13 11:15 | DI.RAD_ITS ---
Exam(s) XR HIP LT AP LAT ONLY EXAM: XR HIP LT AP LAT ONLY CLINICAL HISTORY: LEFT HIP PAIN. TECHNIQUE: 2D digital imaging was performed of the left hip. Two views were obtained. AP and later al left hip views were obtained. COMPARISON: CR XR HIP LT COMPLETE AP PELVIS from 06/28/2023 FINDINGS: BONES: No acute fracture is present. No bony destructive lesion is seen. JOINTS: No dislocation present. The left hip joint space is well maintained. SOFT TISSUE: Normal. IMPRESSION: Unremarkable radiographs of the left hip. DATA REPOSITORY: RADIATION DOSE DELIVERED:
== END 2024-03-13 11:44 | disposition home or self-care (01) ==
LOC: DIORS 11:43
PROVIDERS: PCP Nurse Practitioner; Visit Provider Student in an Organized Health Care Education/Training Program
DX: S73.192A Other sprain of left hip, initial encounter (principal); X58.XXXA Exposure to other specified factors, initial encounter
CPT/HCPCS: 73502

== ENCOUNTER 2024-04-04 02:05 | Outpatient (CLI) | payer BC, SELFPAY ==
--- NOTE | 2024-04-04 08:45 | DI.MRI_ITS ---
Exam(s) MR LOWER JOINT LT WO EXAM: MR LOWER JOINT LT WO CLINICAL HISTORY: ? LABRAL TEAR,TROCHANTERIC BURSITIS LT HIP, ILIOTIBIAL BAND SYNDROME,M76.32 TECHNIQUE: Multiplanar multisequence MRI of Pelvis was performed COMPARISON: CR XR HIP LT AP LAT ONLY from 03/13/2024 FINDINGS: Bones: There is no fracture or contusion pattern. No bone marrow edema is seen. Small cyst in the a nterior femoral head neck junction. Joints: Labrum: Tear of the anterosuperior labrum. No paralabral cysts. Small amount of joint fluid. The SI joints and symphysis pubis are well maintained. Musculotendinous structures: Fluid seen adjacent to greater trochanter consistent with trochanteric bursitis mild edema in the surrounding muscles. No visible tendon tear. Intrapelvic structures demonstrate no significant abnormality. IMPRESSION: Anterosuperior labral tear. Trochanteric bursitis. DATA REPOSITORY:
== END 2024-04-04 02:25 ==
PROVIDERS: PCP Nurse Practitioner; Visit Provider Student in an Organized Health Care Education/Training Program
DX: S73.192A Other sprain of left hip, initial encounter (principal); X58.XXXA Exposure to other specified factors, initial encounter
CPT/HCPCS: 73721

== ENCOUNTER 2024-04-04 03:41 | Outpatient (CLI) | payer BC, SELFPAY ==
[2024-04-04 10:24] LABS: Abs Immature Grans 0.01 10^3/uL (0.0-0.06); Absolute Basophil Count 0.03 10^3/uL (0.0-0.2); Absolute Eosinophil Count 0.12 10^3/uL (0.0-0.7); Absolute Lymphocyte Count 1.15 10^3/uL (1.2-3.4); Absolute Monocyte Count 0.48 10^3/uL (0.1-0.8); Absolute Neutrophil Count 2.27 10^3/uL (1.2-6.7); Basophils % 0.7 %; HCT 39.5 % (36.0-46.0); HGB 12.9 g/dL (11.2-15.7); Immature Grans % 0.2 %; Lymphocytes % 28.3 %; MCH 31.9 pg (27.0-33.0); MCHC 32.7 % (32.0-36.0); MCV 98 fL (80-95); MPV 10.4 fL (8.0-11.0); Monocytes % 11.8 %; Platelet Count 288 10^3/uL (130-400); RBC 4.04 10^6/uL (3.93-5.22); RDW 12.2 % (11.7-14.6); RDW-SD 44.2 fL; WBC 4.06 10^3/uL (4.4-10.8)
[2024-04-04 10:29] LABS: ESR 4 mm/hr (0-20)
[2024-04-04 10:31] LABS: C-Reactive Protein < 0.50 mg/dL (<or=0.5)
== END 2024-04-04 03:42 | disposition home or self-care (01) ==
LOC: LBO 03:41
PROVIDERS: PCP Nurse Practitioner; Visit Provider Student in an Organized Health Care Education/Training Program
DX: S73.192A Other sprain of left hip, initial encounter (principal)
CPT/HCPCS: 85652; 85025; 86140

== ENCOUNTER 2025-04-18 03:45 | Outpatient (CLI) | payer BC, SELFPAY ==
--- NOTE | 2025-04-18 05:30 | DI.MAMMO_ITS ---
Exam(s) MAMMO SCREENING EXAM: MAMMO SCREENING CLINICAL HISTORY: screening,z12.39 TECHNIQUE: Mammograms were interpreted according to the usual protocol including computer analysis with CAD system, tomosynthesis and C-view imaging. COMPARISON: 2015 through 2022 FINDINGS: The breasts are composed of heterogeneously dense fibroglandular densities, Breast Density category C. No suspicious masses or suspicious microcalcifications are seen. No skin thickening or abnormal axillary lymph nodes are seen. There has been no significant change from prior exams. IMPRESSION: BI-RADS Category 1, Negative mammogram. Yearly screening mammography is recommended. Breast Density: Category C - The breasts are heterogeneously dense, which may obscure small masses. Breast density Category C or D implies that the patient has dense breast tissue. Dense breast tissue can make it harder to find cancer on a mammogram. Dense breast tissue is also associated with an increased risk of breast cancer. This information about the result of the mammogram report was provided to the patient to raise their awareness. Use this report when you speak with the patient about their risks for breast cancer, which includes their family history. At that time, you may recommend additional screening tests (Ultrasound or MRI) as these tests may add significant information. A negative radiographic report should not delay biopsy if a dominant or clinically suspicious mass is present. Up to ten percent of cancers are not identified on mammography. A negative report may reinforce clinical impression. Adenosis and dense breasts may obscure an underlying neoplasm. False positive reports average 6 to 10%.
== END 2025-04-18 04:05 ==
PROVIDERS: PCP Nurse Practitioner Family; Visit Provider Nurse Practitioner Family
DX: Z12.31 Encounter for screening mammogram for malignant neoplasm of breast (principal); R92.333 Mammographic heterogeneous density, bilateral breasts
CPT/HCPCS: 77063; 77067

== ENCOUNTER 2025-04-25 09:26 | Outpatient (REF) | payer BC, SELFPAY | END 2025-04-25 09:27 | disposition home or self-care (01) | LOC: LBN 09:26 | PROVIDERS: PCP Nurse Practitioner Family; Visit Provider Obstetrics & Gynecology | DX: Z12.4 Encounter for screening for malignant neoplasm of cervix (principal) | CPT/HCPCS: 88142; 87624 ==